=== PATIENT | male | born 1970 | race American Indian/Alaskan Native ===

== ENCOUNTER 2021-09-17 17:04 | Emergency (ER) | payer SELFPAY ==
[2021-09-17] MEDS ORDERED: diphenhydrAMINE 50 MG/ML VIAL IV ONE (17:14)
[2021-09-17] MEDS ORDERED: methylPREDNISolone Sod Succinate 125 MG/2 ML INJ IV ONE (17:14)
[2021-09-17] MEDS ORDERED: FAMOTIDINE 20 MG/2 ML INJ IV ONE ×2 (17:14→17:19)
[2021-09-17] MEDS ORDERED: SODIUM CHLORIDE 0.9% 1000 ML 1,000 ML ONE (17:17)
--- NOTE | 2021-09-17 17:24 | Emergency Department Report ---
HPI - General Time Seen by Provider: 09/17/21 17:14 - HPI HPI: Room 1 Patient is a 50-year-old male present with a chief complaint of allergic reaction. The patient states today at work for the first time he touched red tilapia states he began sneezing. The patient then tried to wipe his face and began to notice swelling to his face/eyes and diffuse pruritus of the face and bilateral upper extremities. Patient complains of nasal congestion but denies shortness of breath. ED Past Medical Hx - Past Medical History Previous Medical History?: No - Surgical History Past Surgical History?: No - Family History Family history: no significant - Social History Smoking Status: Current Every Day Smoker Substance Use Type: Marijuana - Medications Home Medications: Home Medications Medication Instructions Recorded Confirmed Last Taken Type EPINEPHrine [Epipen 2-Sandip] 0.3 mg IM ONCE PRN #0.6 ml 09/17/21 Unknown Rx Famotidine [Pepcid] 20 mg PO BID #6 tablet 09/17/21 Unknown Rx Prednisone [predniSONE 10 mg 10 mg PO .TAPER #1 09/17/21 Unknown Rx (6-Day Pack, 21 Tabs)] diphenhydrAMINE [Benadryl CAP] 50 mg PO Q6HR #24 capsule 09/17/21 Unknown Rx ED Review of Systems ROS: Stated complaint: ALLERGIC REACTION Other details as noted in HPI Constitutional: no symptoms reported Eyes: other (Eyelid swelling) ENT: congestion Respiratory: denies: shortness of breath Cardiovascular: denies: chest pain Endocrine: no symptoms reported Gastrointestinal: denies: abdominal pain Genitourinary: denies: dysuria Musculoskeletal: denies: back pain Skin: rash, pruritus Physical Exam - Physical Exam Vital Signs: Vital Signs 09/17/21 17:12 Temperature 98.7 F Pulse Rate 61 Respiratory 19 Rate Blood Pressure 115/73 O2 Sat by Pulse 98 Oximetry Physical Exam: GENERAL: The patient is well-developed well-nourished male lying on stretcher with obvious swelling to the face but not appearing to be in acute distress. [] HEENT: Normocephalic. Atraumatic. Extraocular motions are intact. Periorbital edema bilaterally. Oropharynx clear NECK: Supple. There is no stridor CHEST/LUNGS: Clear to auscultation. There is no respiratory distress noted. HEART/CARDIOVASCULAR: Regular. There is no tachycardia. There is no gallop rub or murmur. ABDOMEN: Abdomen is soft, nontender. Patient has normal bowel sounds. There is no abdominal distention. SKIN: There is no rash. There is edema of the face. There is no diaphoresis. NEURO: The patient is awake, alert, and oriented. The patient is cooperative. The patient has no focal neurologic deficits. The patient has normal speech. GCS 15 MUSCULOSKELETAL:There is no limitation range of motion. There is no evidence of acute injury. ED Course Vital Signs 09/17/21 17:12 Temperature 98.7 F Pulse Rate 61 Respiratory 19 Rate Blood Pressure 115/73 O2 Sat by Pulse 98 Oximetry - Reevaluation(s) Reevaluation #1: 09/17/21 18:44 Patient states he is feeling improved. Facial swelling has improved but not resolved. Patient states he is now able to breathe out of his nostrils ED Medical Decision Making - Lab Data Result diagrams: 09/17/21 17:44 09/17/21 17:52 Laboratory Tests 09/17/21 09/17/21 17:44 17:52 WBC 6.6 RBC 4.78 Hgb 14.7 Hct 44.2 MCV 92 MCH 31 MCHC 33 RDW 14.2 Plt Count 209 Lymph % (Auto) 28.5 Casey % (Auto) 9.2 H Eos % (Auto) 5.3 H Baso % (Auto) 0.3 Lymph # (Auto) 1.9 Casey # (Auto) 0.6 Eos # (Auto) 0.4 Baso # (Auto) 0.0 Seg Neutrophils % 56.7 Seg Neutrophils # 3.8 Sodium 138 Potassium 3.9 Chloride 107.5 H Carbon Dioxide 22 Anion Gap 12 BUN 21 H Creatinine 1.2 Estimated GFR > 60 BUN/Creatinine Ratio 18 Glucose 82 Calcium 8.3 L - Differential Diagnosis Acute allergic reaction Critical care attestation.: If time is entered above; I have spent that time in minutes in the direct care of this critically ill patient, excluding procedure time. ED Disposition Clinical Impression: Acute allergic reaction Disposition: 01 HOME / SELF CARE / HOMELESS Is pt being admited?: No Does the pt Need Aspirin: No Condition: Stable Instructions: How to Use an Auto-Injector Pen Additional Instructions: Return to the emergency department should you develop worsening symptoms, inability to tolerate food or liquids, high fever or any other concerns Prescriptions: diphenhydrAMINE [Benadryl CAP] 50 mg PO Q6HR #24 capsule EPINEPHrine [Epipen 2-Sandip] 0.3 mg IM ONCE PRN #0.6 ml PRN Reason: Anaphylaxis Famotidine [Pepcid] 20 mg PO BID #6 tablet Prednisone [predniSONE 10 mg (6-Day Pack, 21 Tabs)] 10 mg PO .TAPER #1 Referrals: RUTH AGARWAL MD [Staff Physician] - 3-5 Days (Dr. Agarwal is an science and operations officer. Please follow-up with her for further evaluation) KLEBER RUIZ MD [Staff Physician] - 3-5 Days (Dr. Kleber Ruiz is a primary physician. Please follow-up with him to be established as a patient if you do not already have a primary physician) Time of Disposition: 18:48
[2021-09-17 18:12] LABS: Basophils % (Auto) 0.3 % (0.0-1.8); Eosinophils # (Auto) 0.4 K/mm3 (0.0-0.4); Eosinophils % (Auto) 5.3 % (0.0-4.3); Hematocrit 44.2 % (35.5-45.6); Hemoglobin 14.7 gm/dl (11.8-15.2); Lymphocytes # (Auto) 1.9 K/mm3 (1.2-5.4); Lymphocytes % (Auto) 28.5 % (13.4-35.0); Mean Corpuscular HGB Conc 33 % (32-34); Mean Corpuscular Volume 92 fl (84-94); Monocytes # (Auto) 0.6 K/mm3 (0.0-0.8); Monocytes % (Auto) 9.2 % (0.0-7.3); Platelet Count 209 K/mm3 (140-440); Red Blood Count 4.78 M/mm3 (3.65-5.03); Red Cell Distribution Width 14.2 % (13.2-15.2)
[2021-09-17 18:32] LABS: BUN/Creatinine Ratio 18; Blood Urea Nitrogen 21 mg/dL (9-20); Calcium 8.3 mg/dL (8.4-10.2); Hemolysis Index 7
[2021-09-17 19:24] VITALS: BP 124/87
== END 2021-09-17 19:23 | disposition home or self-care (01) ==
LOC: ED 17:04
DX: T78.40XA Allergy, unspecified, initial encounter (principal); F17.200 Nicotine dependence, unspecified, uncomplicated; F12.90 Cannabis use, unspecified, uncomplicated
CPT/HCPCS: 36415; 80048; 85025; 96374; 96375; 99283; J3490; J7030